=== PATIENT | female | born 1995 | race Hispanic/Latino ===

== ENCOUNTER 2022-06-25 20:25 | Emergency (ER) | payer OTHER ==
[~2022-06-25] VITALS: Ht 157.5 cm; Wt 52.2 kg
[2022-06-25] MEDS ORDERED: CEFTRIAXONE 1 GM VIAL IM ONE (22:00)
[2022-06-25] MEDS ORDERED: AZITHROMYCIN 250 MG TAB PO ONE (22:00)
[2022-06-25] MEDS ORDERED: CEFTRIAXONE 1 GM VIAL ONE (22:15)
[2022-06-25] MEDS ORDERED: AZITHROMYCIN 250 MG TAB ONE (22:15)
[2022-06-25] MEDS ORDERED: METRONIDAZOLE500 MG PO (22:27)
[2022-06-25] MEDS ORDERED: DOXYCYCLINE HY100 MG PO (22:27)
[2022-06-25] MEDS ORDERED: DIFLUCAN100 MG PO (22:28)
[2022-06-25] MEDS ORDERED: VALTREX1000 MG PO (22:29)
[2022-06-25] MEDS ORDERED: ONDANSETRON ODT4 MG PO (22:29)
== END 2022-06-25 22:57 | disposition home or self-care (01) ==
LOC: FSED 20:41
DX: R30.0 Dysuria (principal); N73.0 Acute parametritis and pelvic cellulitis; N89.8 Other specified noninflammatory disorders of vagina; Z72.51 High risk heterosexual behavior
CPT/HCPCS: 36415; 81003; 81025; 82948; 87086; 99283; J0696